=== PATIENT | female | born 1990 | race Caucasian/White ===

== ENCOUNTER → 2017-02-09 | Outpatient (CLI) | payer MEDICAID ==
[~2017-02-09] MED LIST: ATARAX25 MG PO; MOTRIN800 MG PO; NICODERM / HABIT7 MG TRANS; NICOTINE PATCH1 EAC1 TRANS; NORCO 5-325 TA1 EACH PO; PERCOCET 5-3251 EACH PO; PRENATAL 1+1)(P1 TAB PO; ZANTAC (NON-FO150 MG PO
== END | disposition disaster alternative care site (69) ==
LOC: GRAD 02-05 11:00
DX: M54.41 Lumbago with sciatica, right side (principal); M47.895 Other spondylosis, thoracolumbar region

== ENCOUNTER 2017-04-05 03:18 | Observation (INO) | payer MEDICAID ==
[~2017-04-05] VITALS: Ht 162.6 cm; Wt 64.3 kg
--- NOTE | ~2017-04-05 | DS ---
PATIENT'S NAME: KISHORE AKHTAR [facility] AGE: 26 Y [address] [id number] [address] LOCATION: GICU ADMIT DATE: 04/05/2017 Discharge Summary DISCHARGE DATE: FAMILY PHYSICIAN: Lex Goodwin APRN ATTENDING PHYSICIAN: Chau Us DISCHARGE DIAGNOSES: 1. Spinal headache secondary to epidural blood patch therapy. 2. Smoker. 3. History of migraines. 4. Right femoral cutaneous nerve pain by history. 5. Leukocytosis. 6. Hypokalemia. REASON FOR ADMISSION: The patient had recent epidural and subsequent spinal headache with a blood patch. [place] an overwhelming [place] ER and was transferred here because of her increase in symptoms. Fortunately, with brief Dilaudid therapy, she is headache-free and doing well. Plan is to taper down her pain medications and actually let her go later today if she continues to do well. PROCEDURES: None. Note that a consultation was obtained from Dr. Sanchez who really sort of laid out her history well. Stated that he was not sure an epidural was potentially helpful treatment for right femoral cutaneous nerve pain and feels that she may have had side effects from this procedure in the absence of it being helpful for that diagnosis. LABORATORY DATA: Lactate was 1.2. White count was 16.5 with normal hemoglobin and platelets. Electrolytes showed sodium 144, potassium 3.3, chloride 113, CO2 of 21, and glucose was 117. CT of the head was normal. It occurs to me that she may have had a migraine in addition to spinal headache given that she had nausea and photophobia. She even described left ear and jaw pain. She will be discharged on medications per nursing med recon form. Diet and activity will be as tolerated. PATIENT'S NAME: KISHORE AKHTAR [facility] AGE: 26 Y [address] [id number] [address] LOCATION: [facility] [place] ADMIT DATE: 04/05/2017 Discharge Summary DISCHARGE DATE: FAMILY PHYSICIAN: Lex Goodwin APRN ATTENDING PHYSICIAN: Chau Us Followup will be with Dr. Sanchez if she continues to have symptoms and wants to get the right femoral cutaneous nerve pain treated. I did recommend smoking cessation strongly. Went over use of the patch and cognitive behavioral therapy techniques/ideas with her. Also, described migraine headaches and told her that if she had recurrent headache and it was like that, then possibly we should treat for that, the farther away we get from the epidural. Note that discharge time took greater than 30 minutes. MD NATALIYA BLEVINS/modl /[id number] d: 04/05/17 1405 t: 04/05/17 1719, DISCHARGE SUMMARY
--- NOTE | ~2017-04-05 | HP ---
PATIENT'S NAME: KISHORE AKHTAR [facility] AGE: 26 Y [address] [id number] [address] LOCATION: [facility] ADMIT DATE: 04/05/2017 History & Physical DISCHARGE DATE: FAMILY PHYSICIAN: BARBY AWAN APRN ATTENDING PHYSICIAN: AJ WHITE DATE OF SERVICE: CHIEF COMPLAINT: Headache. HISTORY OF PRESENT ILLNESS: This is a 26-year-old female, who says that she has a history of lumbar degenerative joint disease and she was told that in the past she has a right thigh pinched nerve that she underwent lumbar epidural injection on this Thursday just 5 days ago at [facility]. 20 minutes after the epidural injection, the patient complained of a frontal headache and that she was given some pain medication and nausea medication, and she improved. However, her headache came back the next day, and on which was 3 days ago, the patient went back to [facility], and over there, the performed epidural blood patch. She got better. However, the next day which was 2 days ago in the morning, the patient again felt nauseous and vomited a few times, and also complained of headache again. The patient went back. The patient was given Toradol and Zofran with some relief and the patient was sent home again. Yesterday, the patient's headache came back again with nausea and vomiting. The headache is still in the frontal area and the patient went back again today, she was given again Toradol and Phenergan; however, her headache only showed minimal relief. The patient also got the Fioricet and also with minimal relief. Because of these, the patient was transferred here for further care. The headache is worse when she sits up, but it gets relieved when she lies flat. However, her headache right now is also painful when she lies flat, but not that bad as if she were to sit up. She denies any blurry vision or hearing loss. She does complain of some tinnitus in the left ear. No loose stool. No chest pain. No shortness of breath. No sensation loss and no muscle weakness. No lower back pain. There is no obvious drainage or liquid coming out from the lumbar puncture site. REVIEW OF SYSTEMS: As mentioned in the history of present illness. All other systems were reviewed and were negative except those mentioned in the history of present illness. PAST MEDICAL HISTORY: Sounds like a she has sciatica on the right side. PATIENT'S NAME: KISHORE AKHTAR [facility] AGE: 26 Y [address] ROOM: [id number], [place] [address] LOCATION: [facility] ADMIT DATE: 04/05/2017 History & Physical DISCHARGE DATE: FAMILY PHYSICIAN: BARBY AWAN APRN ATTENDING PHYSICIAN: AJ WHITE ALLERGIES: LATEX. HOME MEDICATIONS: Currently is being reconciled. She states that she takes ranitidine, tramadol, and Zofran at home. However, the list has to be reconciled again. SOCIAL HISTORY: The patient is an active cigarette smoker about 1 pack per day for many years. She denies any illegal drug or alcohol use. PAST SURGICAL HISTORY: Tubal ligation. FAMILY HISTORY: Both parents are healthy. PHYSICAL EXAMINATION: VITAL SIGNS: At the time of my evaluation, temperature was 97.5, respiration was 16, blood pressure was 170/87, heart rate 90, and saturation 100% on room air. GENERAL APPEARANCE: Alert and oriented x3. Currently, in mild distress from headache. HEENT: Pupils are equal, round, and reactive to light. Pupil size about 4 mm bilaterally. Extraocular muscles intact. Anicteric sclerae. Nasal turbinates are normal bilaterally. Moist oral mucosa. NECK: No JVD. There is no neck stiffness. No neck stiffness. CARDIOVASCULAR: Regular rate and rhythm. Normal S1, S2. No murmur, no rubs, no gallops. RESPIRATORY: She has some wheezing diffusely. No rales, no rhonchi, no crackles. ABDOMEN: Soft, nontender, nondistended, bowel sounds present, no masses. EXTREMITIES: No edema in upper or lower extremities. NEUROLOGIC: Cranial nerves 2 through 12 intact. Sensation intact. Muscle strength intact. No facial droop. No slurred speech. No negative pronator drift. Vibration and proprioception intact. [id number] intact. Visual field intact. No nystagmus. Overall grossly unremarkable and without obvious focal deficit. LABORATORY DATA: Currently, they have been drawn. IMAGING STUDIES: None so far. PATIENT'S NAME: KISHORE AKHTAR [facility] AGE: 26 Y [address] [place]OM: [id number] [facility] [id number] LOCATION: [facility] ADMIT DATE: 04/05/2017 History & Physical DISCHARGE DATE: FAMILY PHYSICIAN: BARBY AWAN APRN ATTENDING PHYSICIAN: AJ WHITE ASSESSMENT AND PLAN: 1. Regarding her frontal headache, status post lumbar epidural injection and status post lumbar epidural blood patch: I will get a CT of the head without contrast to make sure there is no intracranial process going on. She can have a regular diet for now unless she will require any surgical intervention based on her evaluation. I will give her pain control with IV morphine p.r.n., IV Dilaudid p.r.n., IV fentanyl p.r.n., and p.o. [place] p.r.n., and also p.o. Fioricet p.r.n. IV Zofran for nausea. I will also consult anesthesiologist for her persistent headache, status post epidural blood patch. Follow up on the blood work to make sure there is no finding of a possible infection which could suggest meningitis. Further plan will depend on clinical course. 2. Regarding her active cigarette smoking: She has wheezing on examination. I will give her nebulization per RT for RSS. She has no pulmonary complaints, therefore I will not get a chest x-ray. 3. Regarding her lumbar degenerative joint disease: Currently, there is no pain. There are no sciatica or nerve impingement symptoms. 4. She is a full code. 5. Further plan will depend on clinical course and also on the blood work and also on the CT of the head. 6. For her active cigarette smoking, we will give her nicotine patch 21 g transdermal daily as well. Time spent in care on the day of admission 50 minutes where 15 minutes was spent on chart review and the rest of the time spent in interview and also on physical examination, also on counseling. The counseling includes going over the plan of care with the patient and the patient's mother at the bedside and I answered all of their questions and concerns in detail to their satisfaction. This time also includes going over the plan of care in detail with the patient and the patient's mother. I answered all of their questions to their satisfaction. Further plan will depend on clinical course. AJ WHITE MD CC/modl /[id number] D: T: [id number] HISTORY & PHYSICAL
[~2017-04-05 03:18] MED LIST changes: -ATARAX25 MG PO; -NICODERM / HABIT7 MG TRANS; -NICOTINE PATCH1 EAC1 TRANS; -NORCO 5-325 TA1 EACH PO
[2017-04-05 05:25] LABS: BASOPHIL # 0.1 K/uL (0.0-0.2); BASOPHIL % 0.3 %; EOSINOPHIL % 0.1 %; HEMATOCRIT 41.5 % (33.0-46.0); HEMOGLOBIN 14.6 g/dL (11.0-15.0); IMMATURE GRANULOCYTE # 0.1 K/uL (0.0-0.3); IMMATURE GRANULOCYTE % 0.5 %; LYMPHOCYTE # 1.7 K/uL (0.8-4.0); LYMPHOCYTE % 10.5 %; MCH 30.7 pg (27.0-34.0); MCHC 35.2 gm/dL (32.0-36.5); MCV 87.4 fl (83.0-98.0); MONOCYTE # 1.1 K/uL (0.0-1.0); MONOCYTE % 6.8 %; MPV 12.3 fl (9.4-12.4); NEUTROPHIL # (ANC) 13.5 K/uL (1.8-7.8); NEUTROPHIL % 81.8 %; NRBC % 0 /100WBC (0-0.00); PLATELET COUNT 219 K/uL (150-450); RBC 4.75 M/uL (3.50-5.00); RDW-CV 13.1 % (11.9-14.6)
[2017-04-05 05:32] LABS: WBC 16.5 K/uL (4.0-11.0)
[2017-04-05 05:33] LABS: INR - (THERAPEUTIC) 1.13 (0.92-1.07); PROTIME 11.9 SECONDS (9.8-11.4)
[2017-04-05 06:01] LABS: ALBUMIN 4.1 gm/dL (3.5-5.0); ALK PHOS 64 IU/L (33-138); ALT 22 IU/L (12-78); ANION GAP 13.3 (10.0-19.0); AST 20 IU/L (10-40); BLOOD UREA NITROGEN 10 mg/dL (6-24); CALCIUM 9.2 mg/dL (8.5-10.5); CHLORIDE 113 mMol/L (96-110); CO2 21 mMol/L (22-32); CREATININE 0.7 mg/dL (0.5-1.1); POTASSIUM 3.3 mMol/L (3.7-5.1); SODIUM 144 mMol/L (135-145); TOTAL BILIRUBIN 0.5 mg/dL (0.0-1.5); TOTAL PROTEIN 7.2 g/dL (6.0-8.4)
--- NOTE | 2017-04-05 07:23 | NUR ---
Significant Event: Pt is alert and orineted x3. Pupils are equal and reactive. Moves all extremities spontaneously and to command. Complaints of a severe generalized headache. Pt's blood pressures have been hypertensive. ON RA. Pt has a puncture site from previous lumbar puncture. Bowel sounds are active, no BM this shift. Voids per toilet. PIV in place. Follow up: Continue to monitor neuro status
[2017-04-05] MEDS ORDERED: ATARAX25 MG PO (08:34)
[2017-04-05] MEDS ORDERED: ZANTAC (NON-FO150 MG PO (08:35)
[2017-04-05] MEDS ORDERED: NICOTINE PATCH1 EAC1 TRANS ×2 (15:03→15:05)
[2017-04-05] MEDS ORDERED: NICODERM / HABIT7 MG TRANS (15:05)
[2017-04-05] MEDS ORDERED: NORCO 5-325 TA1 EACH PO (15:06)
[2017-04-05] MEDS ORDERED: PERCOCET 5-3251 EACH PO (15:06)
--- NOTE | 2017-04-05 16:24 | NUR ---
1554 PATIENT BEING DISCHARGED HOME FROM UNIT. PERSCRIPTIONS GIVEN TO PATIENT. RN TAKING PATIENT DOWN TO CAR TO MEET FAMILY BY WHEELCHAIR. PIV D/C'D FROM LEFT ARM AFTER GETTING 1L BANANA BAG.
== END 2017-04-05 15:47 | disposition disaster alternative care site (69) ==
LOC: GICU 04:11
PROVIDERS: ADMIT Internal Medicine
DX: G97.1 Other reaction to spinal and lumbar puncture (principal); M47.816 Spondylosis without myelopathy or radiculopathy, lumbar region; D72.829 Elevated white blood cell count, unspecified; E87.6 Hypokalemia; F17.210 Nicotine dependence, cigarettes, uncomplicated; Z79.899 Other long term (current) drug therapy; Z98.51 Tubal ligation status; Z91.040 Latex allergy status
CPT/HCPCS: J1170; J2405; J3010; J3411; J7030